=== PATIENT | female | born 1980 | race Caucasian/White ===

== ENCOUNTER 2022-01-26 20:44 | Inpatient (IN) | payer MEDICAID ==
[~2022-01-26] VITALS: Ht 152.4 cm; Wt 74.2 kg
[~2022-01-26 20:44] MED LIST: NO HOME MEDS
[2022-01-26] MEDS ORDERED: HYDROcodone/acetaminophen 10/325mg tab PO ONE (23:15)
[2022-01-26] MEDS ORDERED: normal saline 1000ML IV soln IVB ONE (23:55)
[2022-01-26] MEDS ORDERED: ketamine 50 mg/ml 10ml vial IV ONE (23:55)
[2022-01-26] MEDS ORDERED: fentaNYL/PF 50MCG/1 ML 2ML syringe IV ONE (23:55)
[2022-01-27] VITALS (14 sets, daily range): BP systolic 108–129; BP diastolic 60–76
[2022-01-27] MEDS ORDERED: fentaNYL/PF 50MCG/1 ML 2ML syringe ONE (01:27)
[2022-01-27] MEDS ORDERED: CefTRIAXone/D5W-Rocephin 1gm 50 ML IV ONE (01:40)
[2022-01-27] MEDS ORDERED: TETanus/Pertussis (Acell)/Diphther VAC/PF (Tdap-Adult) 0.5ml syringe IMVAC ONE (01:40)
[2022-01-27] MEDS ORDERED: ondansetron/PF 4mg/2ml inj IV ONE ×2 (01:45→01:50)
--- NOTE | 2022-01-27 02:00 | NUR ---
emesis x2 100cc
--- NOTE | 2022-01-27 02:04 | NUR ---
charli bridgesfriend [phone]
--- NOTE | 2022-01-27 02:45 | NUR ---
emsis x3 clear
[2022-01-27 02:49] LABS: ALANINE AMINOTRANSFERASE 37 U/L (12-78); ALBUMIN 3.5 G/DL (3.4-5.0); ALBUMIN/GLOBULIN RATIO 0.8 (1.1-1.5); ALKALINE PHOSPHATASE 91 IU/L (46-116); ANION GAP 11 (8-16); ASPARTATE AMINO TRANSFERASE 28 U/L (10-37); BILIRUBIN,TOTAL 0.3 MG/DL (0.1-1.0); BLOOD UREA NITROGEN 16 MG/DL (7-18); CALCIUM 8.2 MG/DL (8.5-10.1); CHLORIDE 109 MMOL/L (99-107); CREATININE 0.89 MG/DL (0.40-0.90); GLUCOSE 133 MG/DL (70-104); POTASSIUM 3.8 MMOL/L (3.5-5.1); SODIUM 142 MMOL/L (135-145); TOTAL CARBON DIOXIDE 21.9 MMOL/L (24-32); TOTAL PROTEIN 7.7 G/DL (6.4-8.2); eGFR 71 ML/MIN
[2022-01-27 03:47] LABS: BASOPHILS # (AUTO) 0.1 X10'3 (0-0.2); BASOPHILS % (AUTO) 0.4 % (0-1); EOSINOPHILS # (AUTO) 0.1 X10'3 (0-0.9); LYMPHOCYTES # (AUTO) 1.3 X10'3 (1.1-4.8); MEAN PLATELET VOLUME 12.1 FL (7.4-10.4); MONOCYTES # (AUTO) 0.5 X10'3 (0-0.9)
[2022-01-27 03:49] LABS: EOSINOPHILS % (AUTO) 0.4 % (0-6); HEMATOCRIT 33.5 % (35.0-45.0); LYMPHOCYTES % (AUTO) 8.2 % (21-51); MEAN CORPUSCULAR HGB CONC 32.7 g/dL (33.0-36.5); MEAN CORPUSCULAR VOLUME 82.6 FL (78-98); MONOCYTES % (AUTO) 3.2 % (2-12); NEUTROPHILS % (AUTO) 87.8 % (42-75); PLATELET COUNT 122 X10'3 (140-440); RED BLOOD COUNT 4.06 X10'6 (4.20-5.60); RED CELL DISTRIBUTION WIDTH 14.6 % (11.5-14.5)
[2022-01-27] MEDS ORDERED: acetaminophen 325mg tablet PO PRN ×2 (04:00)
[2022-01-27] MEDS ORDERED: morphine 2 MG/ML inj. syringe IV PRN ×3 (04:00→09:35)
[2022-01-27] MEDS ORDERED: HYDROcodone/acetaminophen 5mg/325mg tablet PO PRN (04:00)
[2022-01-27] MEDS ORDERED: diphenhydrAMINE 50 mg/ml inj IV PRN (04:00)
[2022-01-27] MEDS ORDERED: magnesium hydroxide 30ml (MOM) UD suspension PO PRN (04:00)
[2022-01-27] MEDS ORDERED: HYDROmorphone inj. 0.5 MG/0.5 ML DISP.SYRIN IV PRN (04:00)
[2022-01-27] MEDS ORDERED: acetaminophen 650mg rectal suppository RC PRN (04:00)
[2022-01-27] MEDS ORDERED: ondansetron 4mg rapidly disintigrating tab PO PRN (04:00)
[2022-01-27] MEDS ORDERED: ondansetron/PF 4mg/2ml inj IV PRN ×2 (04:00→09:35)
[2022-01-27] MEDS ORDERED: bisacodyl 10mg suppository rectal RC PRN (04:00)
[2022-01-27] MEDS ORDERED: mag hydrox/Alum hydrox/simeth 30ml oral suspension PO PRN (04:00)
[2022-01-27] MEDS ORDERED: diphenhydrAMINE 25mg capsule PO PRN (04:00)
[2022-01-27 04:20] LABS: APTT 20 SECONDS (22-32)
[2022-01-27] MEDS: normal saline 1000ml 1,000 ML IV SCH ×2 (04:37→14:00)
[2022-01-27 04:59] LABS: MAGNESIUM 1.8 MG/DL (1.5-2.4); PHOSPHORUS 3.4 MG/DL (2.3-4.5)
[2022-01-27 05:25] LABS: CLARITY,URINE CLEAR (Clear); COLOR,URINE YELLOW (Yellow); GLUCOSE, URINE NEGATIVE (Neg); KETONES,URINE NEGATIVE (Neg); LEUKOCYTE ESTERASE ,URINE NEGATIVE (Neg); NITRITES, URINE NEGATIVE (Neg); OCCULT BLOOD,URINE TRACE-INTACT (Neg); PROTEIN,URINE NEGATIVE (Neg); UROBILINOGEN,URINE 0.2 E.U/dL (0.2-1.0)
--- NOTE | 2022-01-27 05:28 | NUR ---
PT ON THE PHONE TALKING TO HER MOM
[2022-01-27 05:33] LABS: UA COLLECTION TYPE CLN CATCH MIDSTREAM
[2022-01-27 05:35] LABS: BACTERIA,URINE 2+ /HPF (Neg); RBC,URINE 0-2 /HPF (0-2); SQUAMOUS EPITHELIAL CELL,UR MODERATE /LPF (FEW)
[2022-01-27 05:36] LABS: HYALINE CASTS 0-3 /LPF (NEGATIVE); MUCUS STRANDS MODERATE /LPF (Neg); WBC CLUMPS,URINE FEW /HPF (NEGATIVE)
--- NOTE | 2022-01-27 05:50 | NUR ---
DR. GALARZA AT BEDSIDE.
[2022-01-27] MEDS: HYDROcodone/acetaminophen 10/325mg tab PO PRN ×2 (07:12→13:26)
[2022-01-27] MEDS: docusate sod 100mg capsule PO SCH ×2 (08:00→20:00)
[2022-01-27] MEDS: ceFAZolin/D5W- 1GM premix 50 ML IV SCH ×2 (08:11→17:56)
[2022-01-27] MEDS: pantoprazole 40mg Tablet.DR PO SCH (08:11)
[2022-01-27] MEDS ORDERED: morphine 4 MG/ML inj SYRINge IV PRN (09:35)
[2022-01-27] MEDS ORDERED: hydrALAZINE 20mg/ml inj. IV PRN (09:35)
[2022-01-27] MEDS ORDERED: fentaNYL/PF 50MCG/1 ML 2ML syringe IV PRN ×2 (09:35)
[2022-01-27] MEDS ORDERED: ringers solution, lacted 1,000 ML IV SCH (09:35)
[2022-01-27] MEDS ORDERED: ringers solution, lacted 1,000 ML IV ONE (09:35)
[2022-01-27] MEDS ORDERED: labetalol 20mg/4ml (5mg/ml) syringe IV PRN (09:35)
[2022-01-27] MEDS ORDERED: MONT-40 PO (18:21)
[2022-01-27] MEDS ORDERED: ALBU17AE26 PO (18:21)
[2022-01-27] MEDS ORDERED: BUDE10.27 PO (18:21)
--- NOTE | 2022-01-27 18:22 | NUR ---
Problems reprioritized. Patient report given, questions answered & plan of care reviewed with SAHRA Fuller.
[2022-01-27] MEDS ORDERED: LIDOcaine 2% (20mg/ml) 5ml vial ONE (19:47)
[2022-01-27] MEDS ORDERED: ondansetron/PF 4mg/2ml inj ONE (19:47)
[2022-01-27] MEDS ORDERED: propofol inj 20 ML IV ONE (19:47)
[2022-01-27] MEDS ORDERED: ROPIVAcaine 0.5% (5mg/ml) 30ml vial ONE (19:49)
[2022-01-27] MEDS ORDERED: dexamethasone sod phosphate 10mg/ml inj ONE (20:33)
[2022-01-27] MEDS ORDERED: sevoflurane 250ml liquid IH ONE (20:33)
[2022-01-27] MEDS ORDERED: ceFAZolin 1000mg inj ONE ×2 (20:38)
[2022-01-27] MEDS ORDERED: temazepam 15mg capsule PO PRN (21:00)
--- NOTE | 2022-01-27 21:42 | NUR ---
Received from OR via BED, accompanied by Anesthesiologist DR NELSON and report given by Anesthesiologist AND CLIENT RESOLUTION SPECIALIST. PT DROWSY, NO S/S OF DISTRESS/DISCOMFORT. RIGHT ARM FROM MID FOREARM TO FINGERS W/NOLVIA WRAP COVERING DRSG/SPLINT CDI. FINGERS PWD. Addendum: 01/27/22 at 2201 by Kylah Porter RN Amended: Links added.
--- NOTE | 2022-01-27 22:42 | NUR ---
Report called to receiving nurse. Transferred via BED, NO Belongings. RECEIVING RN AT BEDSIDE TO RECEIVE PT, BLL, CALL LIGHT GIVEN, SIDE RAILS UP X 2. PT DENIES PAIN, STATES SHE IS COMFORTABLE. Special Issues communicated to receiving nurse. YES. Addendum: 01/27/22 at 2300 by Kylah Porter RN Amended: Links added.
--- NOTE | 2022-01-27 23:00 | NUR ---
Report received from recovery. Pt arrived to room. A&O w/no c/o pain. VS, IV and SCDs. Right arm in sling, unable to move right fingers at this time. Pt talking with mom on phone.
[2022-01-28] VITALS (7 sets, daily range): BP systolic 101–117; BP diastolic 61–79
[2022-01-28] MEDS: ceFAZolin/D5W- 1GM premix 50 ML IV SCH ×2 (01:06→09:52)
[2022-01-28] MEDS ORDERED: famotidine 20mg tablet PO ONE (06:00)
[2022-01-28 06:07] LABS: ALANINE AMINOTRANSFERASE 32 U/L (12-78); ALBUMIN 3.3 G/DL (3.4-5.0); ALBUMIN/GLOBULIN RATIO 0.8 (1.1-1.5); ALKALINE PHOSPHATASE 85 IU/L (46-116); ANION GAP 10 (8-16); ASPARTATE AMINO TRANSFERASE 23 U/L (10-37); BILIRUBIN,TOTAL 0.5 MG/DL (0.1-1.0); BLOOD UREA NITROGEN 10 MG/DL (7-18); BUN/CREATININE RATIO 12.2 (6.6-38.0); CALCIUM 8.6 MG/DL (8.5-10.1); CHLORIDE 107 MMOL/L (99-107); CREATININE 0.82 MG/DL (0.40-0.90); GLUCOSE 139 MG/DL (70-104); POTASSIUM 3.9 MMOL/L (3.5-5.1); SODIUM 140 MMOL/L (135-145); TOTAL CARBON DIOXIDE 23.5 MMOL/L (24-32); TOTAL PROTEIN 7.4 G/DL (6.4-8.2); eGFR 78 ML/MIN
--- NOTE | 2022-01-28 06:20 | NUR ---
Patient in room ORTHO 4015. I have received report from SAHRA Fuller and had the opportunity to ask questions and assume patient care.
[2022-01-28 06:33] LABS: BASOPHILS % (AUTO) 0.1 % (0-1); EOSINOPHILS % (AUTO) 0 % (0-6); HEMATOCRIT 31.9 % (35.0-45.0); HEMOGLOBIN 10.7 g/dl (12.0-16.0); LYMPHOCYTES # (AUTO) 0.5 X10'3 (1.1-4.8); LYMPHOCYTES % (AUTO) 5.1 % (21-51); MEAN CORPUSCULAR HEMOGLOBIN 27.6 PG (27.0-31.0); MEAN CORPUSCULAR HGB CONC 33.5 g/dL (33.0-36.5); MEAN CORPUSCULAR VOLUME 82.4 FL (78-98); MEAN PLATELET VOLUME 12.5 FL (7.4-10.4); MONOCYTES # (AUTO) 0.1 X10'3 (0-0.9); MONOCYTES % (AUTO) 1.5 % (2-12); NEUTROPHILS # (AUTO) 8.5 X10'3 (1.8-7.7); NEUTROPHILS % (AUTO) 93.3 % (42-75); PLATELET COUNT 141 X10'3 (140-440); RED BLOOD COUNT 3.88 X10'6 (4.20-5.60); RED CELL DISTRIBUTION WIDTH 14.6 % (11.5-14.5); WHITE BLOOD COUNT 9.1 X10'3 (4.5-11.0)
--- NOTE | 2022-01-28 06:34 | NUR ---
Problems reprioritized. Patient report given, questions answered & plan of care reviewed with Maggie BOCANEGRA. Addendum: 01/28/22 at 0634 by Alina Garcia RN Amended: Links added.
[2022-01-28 09:18] LABS: LARGE PLATELETS FEW; PLATELET ESTIMATE NORMAL
[2022-01-28] MEDS: normal saline 1000ml 1,000 ML IV SCH ×2 (09:26)
[2022-01-28] MEDS: pantoprazole 40mg Tablet.DR PO SCH (09:51)
[2022-01-28] MEDS: docusate sod 100mg capsule PO SCH (09:52)
--- NOTE | 2022-01-28 14:40 | NUR ---
DC inst provided to pt & family. IV DC'd, tip intact. All belongings sent w/pt. Pt ambulated to vehicle.
== END 2022-01-28 14:40 | disposition home or self-care (01) | DRG 315 ==
LOC: ER 20:44 → ED HOLD 01-27 04:01 → ORTHO 4S 01-27 07:45
PROVIDERS: ADMIT Family Medicine; ATTEND Family Medicine
PROC: 0RSNXZZ Reposition Right Wrist Joint, External Approach (ICD-10-PCS; 2022-01-26)
PROC: 3E0234Z Introduction of Serum, Toxoid and Vaccine into Muscle, Percutaneous Approach (ICD-10-PCS; 2022-01-27)
PROC: 3E0T3BZ Introduction of Anesthetic Agent into Peripheral Nerves and Plexi, Percutaneous Approach (ICD-10-PCS; 2022-01-27)
PROC: 3E0T33Z Introduction of Anti-inflammatory into Peripheral Nerves and Plexi, Percutaneous Approach (ICD-10-PCS; 2022-01-27)
PROC: 0PSH04Z Reposition Right Radius with Internal Fixation Device, Open Approach (ICD-10-PCS; principal; 2022-01-27 20:33)
DX: S52.571A Other intraarticular fracture of lower end of right radius, initial encounter for closed fracture (principal); D63.8 Anemia in other chronic diseases classified elsewhere; D69.6 Thrombocytopenia, unspecified; E87.2 Acidosis; Z20.822 Contact with and (suspected) exposure to COVID-19; F84.0 Autistic disorder; G40.909 Epilepsy, unspecified, not intractable, without status epilepticus; J45.909 Unspecified asthma, uncomplicated; S61.511A Laceration without foreign body of right wrist, initial encounter; S80.212A Abrasion, left knee, initial encounter; Z79.82 Long term (current) use of aspirin; Z23 Encounter for immunization; Y93.89 Activity, other specified; Y92.89 Other specified places as the place of occurrence of the external cause; Y99.8 Other external cause status; V00.141A Fall from scooter (nonmotorized), initial encounter; Z88.2 Allergy status to sulfonamides; Z90.49 Acquired absence of other specified parts of digestive tract
CPT/HCPCS: 36415; 73100; 73110; 80053; 81001; 82948; 83735; 83880; 84100; 85008; 85025; 85610; 85730; 87081; 87088; 87635; 90715; 93005; 94760; 94799; 96361; 96374; 96375; 99285; A4565; A4615; A4618; A6212; A6222; A6223; A6258; A6449; A7000; C1713; G0378; J0690; J0696; J1100; J2405; J2704; J2795; J3010; J3490; J7030; J7120